=== PATIENT | male | born 1940 | race Caucasian/White ===

== ENCOUNTER 2021-04-23 22:18 | Emergency (ER) | payer MEDICARE, BC ==
[~2021-04-23] VITALS: Ht 188 cm; Wt 92.5 kg
--- NOTE | 2021-04-23 22:20 | NUR ---
PT BIB RA 87 C/O GENERALIZED WEAKNESS FROM HOME. A/O X3, NO SOB OR LABORED BREATHING, AFEBRILE. DENIES CP/PRESSURE. CLEAR SPEECH, COMPLETE SENTENCES. NO N/V/D.
--- NOTE | 2021-04-23 22:32 | NUR ---
DR. YOO AT BEDSIDE, MSE IN PROGRESS.
[2021-04-23 23:25] LABS: HEMATOCRIT 43.9 % (36.7-47.1); MEAN CORPUSCULAR HEMOGLOBIN 31.1 uug (23.8-33.4); MEAN CORPUSCULAR VOLUME 93.3 fL (73.0-96.2); PLATELET COUNT (AUTO) 184 K/uL (152-348)
[2021-04-23 23:29] LABS: CARBON DIOXIDE 23 mmol/L (21-32); CHLORIDE 106 mmol/L (98-107); CREATININE 1.6 mg/dL (0.6-1.3); GLUCOSE 216 mg/dL (74-106); POTASSIUM 3.7 mmol/L (3.5-5.1); UREA NITROGEN, BLOOD 39 mg/dL (7-18)
[2021-04-23 23:46] LABS: ALANINE AMINOTRANSFERASE 196 U/L (16-63); ALKALINE PHOSPHATASE 815 U/L (50-136); ASPARTATE AMINOTRANSFERASE 133 U/L (15-37); BILIRUBIN,TOTAL 0.5 mg/dL (0.2-1.0); LIPASE 207 U/L (73-393); TOTAL PROTEIN, SERUM 6.4 g/dL (6.4-8.2)
--- NOTE | 2021-04-24 00:45 | NUR ---
Patient discharged to home in stable condition. No changes in LOC. Denies any pain/discomfort upon discharge. Written and verbal after care instructions given. Patient verbalizes understanding of instructions. Stressed follow up or return to ER for worsening s/s. Steady gait. Picked up by family.
[2021-04-24 01:37] VITALS: BP 131/72
== END 2021-04-24 00:48 | disposition home or self-care (01) ==
LOC: ER 22:20
DX: R53.1 Weakness (principal); I44.0 Atrioventricular block, first degree; I10 Essential (primary) hypertension; E78.5 Hyperlipidemia, unspecified; E11.65 Type 2 diabetes mellitus with hyperglycemia; R94.31 Abnormal electrocardiogram [ECG] [EKG]
CPT/HCPCS: 36415; 70030-TC; 83690; 85025; 93005; A4663